=== PATIENT | male | born 1995 | race Caucasian/White ===

== ENCOUNTER 2017-12-10 12:59 | Emergency (ER) | payer OTHER ==
[~2017-12-10] VITALS: Ht 188 cm; Wt 85.3 kg
[2017-12-10] MEDS ORDERED: HYDROCODONE-AP1 EAC6 PO (15:38)
[2017-12-10] MEDS ORDERED: CIPROFLOXACIN500 M1 PO (15:38)
[2017-12-10 16:04] VITALS: BP 132/88
[2017-12-10] MEDS ORDERED: KEFLEX500 M1 PO (16:04)
== END 2017-12-10 16:07 | disposition home or self-care (01) ==
LOC: ER 12:59
DX: S92.535A Nondisplaced fracture of distal phalanx of left lesser toe(s), initial encounter for closed fracture (principal); S91.115A Laceration without foreign body of left lesser toe(s) without damage to nail, initial encounter; F17.210 Nicotine dependence, cigarettes, uncomplicated; W20.8XXA Other cause of strike by thrown, projected or falling object, initial encounter; Y92.512 Supermarket, store or market as the place of occurrence of the external cause; Y93.89 Activity, other specified; Y99.8 Other external cause status